=== PATIENT | male | born 1965 | race Caucasian/White ===

== ENCOUNTER 2017-12-07 17:02 | Emergency (ER) | payer SELFPAY ==
[2017-12-07 17:45] VITALS: BP 135/87
[2017-12-07] MEDS ORDERED: KETOROLAC 30 MG/1 ML ONE (17:51)
[2017-12-07] MEDS ORDERED: OXYcodone/APAP 5/325MG TABLET ONE (17:52)
[2017-12-07] MEDS ORDERED: OXYcodone/APAP 5/325MG TABLET PO ONE (18:00)
[2017-12-07] MEDS ORDERED: KETOROLAC 30 MG/1 ML IM ONE (18:00)
== END 2017-12-07 18:24 | disposition left against medical advice (07) ==
LOC: ED 18:18
DX: S39.012A Strain of muscle, fascia and tendon of lower back, initial encounter (principal); G89.11 Acute pain due to trauma; R07.89 Other chest pain; X58.XXXA Exposure to other specified factors, initial encounter; Y93.89 Activity, other specified; Y92.89 Other specified places as the place of occurrence of the external cause; Y99.8 Other external cause status
CPT/HCPCS: 71101; 96372; 99284; J1885

== ENCOUNTER 2017-12-08 10:42 | Emergency (ER) | payer SELFPAY ==
[~2017-12-08] VITALS: Ht 182.9 cm; Wt 72.9 kg
[2017-12-08 10:58] VITALS: BP 140/80
== END 2017-12-08 11:26 | disposition left against medical advice (07) ==
LOC: ED 11:00
DX: R07.81 Pleurodynia (principal); Z53.21 Procedure and treatment not carried out due to patient leaving prior to being seen by health care provider

== ENCOUNTER 2017-12-12 15:32 | Emergency (ER) | payer MEDICARE ==
[~2017-12-12] VITALS: Ht 180.3 cm; Wt 90.0 kg
[2017-12-12] MEDS ORDERED: KETOROLAC 30 MG/1 ML ONE ×3 (16:24→18:39)
[2017-12-12] MEDS: KETOROLAC 30 MG/1 ML IM ONE ×2 (16:25→18:46)
[2017-12-12 16:37] LABS: BASOPHILS # (AUTO) 0.01 x10^3/uL (0-0.1); BASOPHILS % (AUTO) 0 % (0-1); EOSINOPHILS # (AUTO) 0.03 x10^3/uL (0-0.4); EOSINOPHILS % (AUTO) 0 % (1-7); LYMPHOCYTES # (AUTO) 1.11 x10^3/uL (1-3.4); LYMPHOCYTES % (AUTO) 13 % (22-44); MD NO; MEAN CORPUSCULAR HEMOGLOBIN 33.8 pg (27.5-34.5); MEAN CORPUSCULAR HGB CONC 34.9 g/dL (33.2-36.2); MEAN PLATELET VOLUME 8.5 fL (7.4-10.4); MONOCYTES # (AUTO) 0.37 x10^3/uL (0.2-0.8); MONOCYTES % (AUTO) 4 % (2-9); NEUTROPHILS # (AUTO) 7.16 x10^3/uL (1.8-6.8); NEUTROPHILS % (AUTO) 83 % (42-75); PLATELET COUNT 165 x10^3/uL (130-400); RED BLOOD COUNT 4.07 x10^6/uL (4.38-5.82); RED CELL DISTRIBUTION WIDTH 12.2 % (9.4-14.8)
[2017-12-12 16:47] LABS: ANION GAP 9 mmol/L (5-15); CALCIUM 8.5 mg/dL (8.5-10.1); CHLORIDE 106 mmol/L (98-107); CREATININE 0.62 mg/dL (0.7-1.3)
[2017-12-12 16:49] LABS: ACETAMINOPHEN < 2 mcg/mL (10-30)
[2017-12-12 18:39] LABS: AMPHETAMINE SCREEN, URINE Negative (Negative); BARBITURATE SCREEN, URINE Negative (Negative); BENZODIAZEPINE SCREEN, URINE Negative (Negative); CANNABINOID SCREEN, URINE Negative (Negative); COCAINE SCREEN, URINE Negative (Negative); METHADONE SCREEN, URINE Negative (Negative); OPIATE SCREEN, URINE Negative (Negative)
[2017-12-12] MEDS ORDERED: zoloft PO (22:45)
[2017-12-12] MEDS ORDERED: tamsulosin PO (22:45)
[2017-12-13] MEDS ORDERED: NICOTINE 14MG/24 HR PATCH.TD24 TD ONE (13:30)
[2017-12-13] MEDS ORDERED: NICOTINE 14MG/24 HR PATCH.TD24 ONE (14:12)
[2017-12-13] MEDS ORDERED: ONDANSETRON ODT 4 MG PO PRN (14:30)
[2017-12-13] MEDS ORDERED: DOCUSATE 100 MG CAPSULE PO PRN (14:30)
[2017-12-13] MEDS ORDERED: IBUPROFEN 200 MG TABLET PO PRN (14:30)
[2017-12-13] MEDS ORDERED: ACETAMINOPHEN 325 MG TABLET PO PRN (14:30)
[2017-12-13] MEDS ORDERED: BISACODYL 10 MG SUPP PR PRN (14:30)
[2017-12-13] MEDS ORDERED: POLYETHYLENE GLYCOL 17 GM PACKET PO PRN (14:30)
[2017-12-13] MEDS ORDERED: NICOTINE 21 MG/24 HR PATCH.TD24 TD SCH (14:30)
[2017-12-13] MEDS ORDERED: IBUPROFEN 200 MG TABLET ONE (17:59)
[2017-12-13 18:48] VITALS: BP 138/90
[2017-12-14] MEDS ORDERED: SERTRALINE 50MG TABLET PO SCH (09:00)
[2017-12-14] MEDS ORDERED: TAMSULOSIN 0.4 MG CAP.ER.24H PO SCH (09:00)
== END 2017-12-13 19:23 | disposition home or self-care (01) ==
LOC: ED 17:25 → UNDOADMOB 12-13 08:56 → EDIP 12-13 08:56
DX: S20.212A Contusion of left front wall of thorax, initial encounter (principal); F10.120 Alcohol abuse with intoxication, uncomplicated; X58.XXXA Exposure to other specified factors, initial encounter; Y93.89 Activity, other specified; Y99.8 Other external cause status; Y92.89 Other specified places as the place of occurrence of the external cause
CPT/HCPCS: 36415; 71045; 80048; 80307; 80329; 82040; 85025; 96372; 99285; J1885; Q0177; G0480

== ENCOUNTER 2018-01-24 17:00 | Emergency (ER) | payer MEDICARE ==
[~2018-01-24] VITALS: Ht 170.2 cm; Wt 75.0 kg
[~2018-01-24 17:00] MED LIST: tamsulosin PO; zoloft PO
[2018-01-24] MEDS ORDERED: HYDROcodone/APAP 5/325 TABLET PO ONE (18:00)
[2018-01-24] MEDS ORDERED: HYDROcodone/APAP 5/325 TABLET ONE (18:15)
[2018-01-24 18:47] VITALS: BP 118/82
== END 2018-01-24 21:35 | disposition home or self-care (01) ==
LOC: ED 21:30
DX: S09.90XA Unspecified injury of head, initial encounter (principal); G89.29 Other chronic pain; M54.9 Dorsalgia, unspecified; R19.7 Diarrhea, unspecified; F10.129 Alcohol abuse with intoxication, unspecified; F17.200 Nicotine dependence, unspecified, uncomplicated; X58.XXXA Exposure to other specified factors, initial encounter; Y93.89 Activity, other specified; Y92.89 Other specified places as the place of occurrence of the external cause; Y99.8 Other external cause status
CPT/HCPCS: 70450; 70486; 72131; 99284

== ENCOUNTER 2018-01-26 08:32 | Emergency (ER) | payer MEDICARE ==
[~2018-01-26] VITALS: Ht 180.3 cm; Wt 75.0 kg
[2018-01-26 08:34] VITALS: BP 107/67
[2018-01-26] MEDS ORDERED: KETOROLAC 30 MG/1 ML ONE (09:09)
[2018-01-26] MEDS ORDERED: KETOROLAC 30 MG/1 ML IM ONE (09:30)
== END 2018-01-26 09:23 | disposition home or self-care (01) ==
LOC: ED 08:40
DX: S83.92XA Sprain of unspecified site of left knee, initial encounter (principal); X58.XXXA Exposure to other specified factors, initial encounter; Y93.89 Activity, other specified; Y92.410 Unspecified street and highway as the place of occurrence of the external cause; Y99.8 Other external cause status
CPT/HCPCS: 73564; 96372; 99283; J1885

== ENCOUNTER 2018-02-23 18:06 | Emergency (ER) | payer MEDICARE ==
[~2018-02-23] VITALS: Ht 185.4 cm; Wt 100.0 kg
[~2018-02-23 18:06] MED LIST changes: +TAMS-11 PO
[2018-02-23 21:18] VITALS: BP 96/71
== END 2018-02-23 22:49 | disposition left against medical advice (07) ==
LOC: ED 19:41
DX: M54.5 Low back pain (principal); F10.120 Alcohol abuse with intoxication, uncomplicated; F17.200 Nicotine dependence, unspecified, uncomplicated
CPT/HCPCS: 99283

== ENCOUNTER 2018-02-26 15:32 | Emergency (ER) | payer MEDICARE ==
[~2018-02-26] VITALS: Ht 180.3 cm; Wt 80.0 kg
[2018-02-26 15:48] VITALS: BP 124/81
[2018-02-26] MEDS ORDERED: DIAZEPAM 5 MG TABLET PO ONE (16:00)
[2018-02-26] MEDS ORDERED: HYDROcodone/APAP 5/325 TABLET PO ONE (16:00)
[2018-02-26] MEDS ORDERED: DIAZEPAM 5 MG TABLET ONE (16:08)
[2018-02-26] MEDS ORDERED: HYDROcodone/APAP 5/325 TABLET ONE (16:08)
== END 2018-02-26 16:28 | disposition home or self-care (01) ==
LOC: ED 16:02
DX: S39.012A Strain of muscle, fascia and tendon of lower back, initial encounter (principal); Z76.0 Encounter for issue of repeat prescription; F17.200 Nicotine dependence, unspecified, uncomplicated; Z88.1 Allergy status to other antibiotic agents; X58.XXXA Exposure to other specified factors, initial encounter; Y93.89 Activity, other specified; Y92.89 Other specified places as the place of occurrence of the external cause; Y99.8 Other external cause status
CPT/HCPCS: 99283

== ENCOUNTER 2018-03-06 11:17 | Emergency (ER) | payer MEDICARE ==
[~2018-03-06] VITALS: Ht 180.3 cm; Wt 75.0 kg
[2018-03-06 11:19] VITALS: BP 123/77
--- NOTE | 2018-03-06 11:24 | NUR ---
PT NOW STATING THAT HE DOES NOT WISH TO BE EVALUATED BECAUSE I INFORMED HIM THAT I CAN NOT GIVE HIM PAIN MEDICATIONS WITHOUT A DOCTORS ORDERS. PT STATED "YOPU KNOW, I HEARD ABOUT YOU PEOPLE, YOU ARE THE WORSE. I JUST WANT SOME FUCKING PAIN MEDS" PT THEN PROCEDED TO REMOVE MONITORS AND WRIST BAND, AMBULATED INDEPENDENTLY WITH A STEADY GAIT TO THE ED EXIT IN NAD.
== END 2018-03-06 11:30 | disposition left against medical advice (07) ==
LOC: ED 11:24
DX: M54.9 Dorsalgia, unspecified (principal); M54.2 Cervicalgia; R52 Pain, unspecified; F10.129 Alcohol abuse with intoxication, unspecified; Z53.21 Procedure and treatment not carried out due to patient leaving prior to being seen by health care provider

== ENCOUNTER 2018-03-13 12:57 | Emergency (ER) | payer MEDICARE ==
[~2018-03-13] VITALS: Ht 180.3 cm; Wt 67.0 kg
[2018-03-13 13:27] VITALS: BP 127/75
[2018-03-13] MEDS ORDERED: HYDROcodone/APAP 5/325 TABLET ONE (14:06)
[2018-03-13] MEDS ORDERED: DEXAMETHASONE 4 MG TABLET ONE (14:06)
[2018-03-13] MEDS ORDERED: DEXAMETHASONE 4 MG TABLET PO ONE (14:30)
[2018-03-13] MEDS ORDERED: HYDROcodone/APAP 5/325 TABLET PO ONE (14:30)
== END 2018-03-13 14:38 | disposition home or self-care (01) ==
LOC: ED 13:37
DX: J02.9 Acute pharyngitis, unspecified (principal); F17.200 Nicotine dependence, unspecified, uncomplicated
CPT/HCPCS: 99283

== ENCOUNTER 2018-03-20 00:29 | Emergency (ER) | payer MEDICARE ==
[~2018-03-20] VITALS: Ht 180.3 cm; Wt 70.0 kg
[2018-03-20] MEDS ORDERED: MAALOX/HYOSCYAMINE/LIDOCAINE 45 ML BTL ONE (00:59)
[2018-03-20] MEDS ORDERED: MAALOX/HYOSCYAMINE/LIDOCAINE 45 ML BTL PO ONE (01:00)
--- NOTE | 2018-03-20 01:08 | NUR ---
SUMMARY NOTE: PT. ARRIVED VIA [facility] FOR C/O SORE THROAT. DX WITH STREP AND FINISHED AMOXICILLIN ABX COURSE. PT. REPORTS COUGHING UP BLOOD. ANN MIKE WAS IN TO EVAL PT. AND DISCUSS POC. PT. DID AMBULATE INTO ROOM FORM AMBULANCE BAY WITH STEADY GAIT. PT. PLACED ON CONTINUOUS PULSE OX, B/P, AND HEART MONITORS. PT. HAS HAD X-RAY COMPLETED AND HAS BEEN MEDCIATED PER MAY. WATER WAS PROVIDED AFTER OK FROM ANN. CALL LIGHT IN REACH. ALL SAFETY MEASURES OBSERVED.
--- NOTE | 2018-03-20 01:41 | NUR ---
Break RN: ERP at bedside for patient evaluation.
[2018-03-20 01:43] LABS: BASOPHILS # (AUTO) 0.03 x10^3/uL (0-0.1); BASOPHILS % (AUTO) 0 % (0-1); EOSINOPHILS % (AUTO) 1 % (1-7); LYMPHOCYTES # (AUTO) 2.29 x10^3/uL (1-3.4); LYMPHOCYTES % (AUTO) 22 % (22-44); MD NO; MEAN CORPUSCULAR HEMOGLOBIN 32.8 pg (27.5-34.5); MEAN CORPUSCULAR HGB CONC 34.5 g/dL (33.2-36.2); MEAN PLATELET VOLUME 7.5 fL (7.4-10.4); MONOCYTES # (AUTO) 0.75 x10^3/uL (0.2-0.8); MONOCYTES % (AUTO) 7 % (2-9); NEUTROPHILS # (AUTO) 7.42 x10^3/uL (1.8-6.8); NEUTROPHILS % (AUTO) 70 % (42-75); PLATELET COUNT 224 x10^3/uL (130-400); RED CELL DISTRIBUTION WIDTH 12.7 % (9.4-14.8)
[2018-03-20 01:49] LABS: ANION GAP 8 mmol/L (5-15); CALCIUM 8.4 mg/dL (8.5-10.1); CHLORIDE 106 mmol/L (98-107)
[2018-03-20 01:53] LABS: ALANINE AMINOTRANSFERASE 36 U/L (12-78); ALKALINE PHOSPHATASE 82 U/L (45-117); BILIRUBIN,TOTAL 0.2 mg/dL (0.2-1.0); CREATININE 0.62 mg/dL (0.7-1.3); TOTAL PROTEIN 8.1 g/dL (6.4-8.2)
[2018-03-20] MEDS ORDERED: BICILLIN-LA 1,200,000 UNITS/2 ML IM ONE (02:00)
--- NOTE | 2018-03-20 02:18 | NUR ---
PT. MEDICATED PER MAY.
[2018-03-20 02:27] VITALS: BP 124/76
--- NOTE | 2018-03-20 02:35 | NUR ---
PT. CALLED THIS RN INTO ROOM. PT. HAS BLOODY NOSE FROM RIGHT NARE; PT. REPORTS THIS IS THE SECOND TIME TONIGHT. PT. NOT ON BLOOD THINNERS. HAD PT. BLOW NOSE AND NOSECLAMP PLACED. ANN MIKE AWARE.
--- NOTE | 2018-03-20 03:04 | NUR ---
ANN MIKE IN TO [facility] PT. FOR BLOODY NOSE.
[2018-03-20] MEDS ORDERED: PHENYLEPHRINE NASAL 1%, 15ML SPRAY ONE (03:11)
[2018-03-20] MEDS ORDERED: OXYMETAZOLINE NASAL SPRAY 0.05%, 15ML NAS ONE (03:30)
== END 2018-03-20 03:24 | disposition home or self-care (01) ==
LOC: ED 01:41
DX: R04.0 Epistaxis (principal); J02.0 Streptococcal pharyngitis; J20.8 Acute bronchitis due to other specified organisms; F17.210 Nicotine dependence, cigarettes, uncomplicated; Z72.9 Problem related to lifestyle, unspecified
CPT/HCPCS: 36415; 71046; 80053; 80307; 85025; 87880; 96372; 99284; J0561